=== PATIENT | male | born 1935 | race Caucasian/White ===

== ENCOUNTER 2018-01-23 14:21 | Emergency (ER) | payer MEDICARE, OTHER ==
[2018-01-23 15:05] LABS: #Eosinphils 0.4 thou/uL (0.0-0.7); #Lymphocytes 2.6 thou/uL (1.20-3.40); #Monocytes 0.9 thou/uL (0.11-0.59); #Neutrophils 3.8 thou/uL (1.40-6.50); %Basophils 0.2 % (0.0-1.0); %Eosinophils 5.4 % (0.0-10.0); %Lymphocytes 33.6 % (21.0-51.0); %Monocytes 11.6 % (0.0-10.0); %Neutrophils 49.2 % (42.0-75.0); Hemoglobin 15.2 g/dL (14.0-18.0); Mean Corpuscular HGB CONC 34.4 g/dL (32.0-36.0); Mean Corpuscular Hemoglobin 32.5 pg (27.0-31.0); Mean Corpuscular Volume 94.6 fl (80.0-94.0); Mean Platelet Volume 9.9 fL (7.4-10.4); Platelet Count 179 thou/uL (130-400); Red Blood Cell (RBC) Count 4.67 mill/uL (4.70-6.10); White Blood Cell (WBC) Count 7.7 thou/uL (4.8-10.8)
[2018-01-23] MEDS ORDERED: Ondansetron ODT 4 MG TAB ONE (15:07)
[2018-01-23] MEDS ORDERED: Nitroglycerin 0.4 MG TAB (25 Tab Bottle) ONE (15:37)
--- NOTE | 2018-01-23 15:39 | RAD ---
PORTABLE CHEST: Date: 01-23-18 Provided Clinical History: Choking. FINDINGS: Comparison 07-05-07. Cardiac and mediastinal silhouette is within normal limits. Lungs appear clear. No pleural fluid or p neumothorax apparent. IMPRESSION: No evidence for acute cardiopulmonary process. POS: [facility]
[2018-01-23 16:20] LABS: ALT (SGPT) 21 U/L (8-55); AST (SGOT) 21 U/L (5-34); Albumin 4.2 g/dL (3.4-4.8); Alkaline Phosphatase 93 U/L (40-150); Anion Gap 16 mmol/L (10-20); BUN (Urea Nitrogen) 20 mg/dL (8.4-25.7); Bilirubin, Total 0.8 mg/dL (0.2-1.2); Calc. Creatinine Clearance 0 mL/min (70-130); Calcium 9.6 mg/dL (7.8-10.44); Carbon Dioxide 20 mmol/L (23-31); Chloride 105 mmol/L (98-107); Estimated GFR-MDRD 64; Globulin 3.3 g/dL (2.4-3.5); Glucose 117 mg/dL (83-110); Potassium 3.6 mmol/L (3.5-5.1); Protein, Total 7.5 g/dL (5.8-8.1); Sodium 137 mmol/L (136-145)
--- NOTE | 2018-03-12 15:09 | EKG ---
Test Reason : CHEST PAIN Blood Pressure : / mmHG Vent. Rate : 072 BPM Atrial Rate : 072 BPM P-R Int : 180 ms QRS Dur : 096 ms QT Int : 416 ms P-R-T Axes : 010 -18 038 degrees QTc Int : 455 ms Sinus rhythm with Premature atrial complexes Moderate voltage criteria for LVH, may be normal variant Borderline ECG Confirmed by SHAYY BANEGAS ([id number]), rewrite editor CORNELL MOURA ([id number]) on 03/12/2018 3:09:04 PM Referred By: Confirmed By:SHAYY BANEGAS
== END 2018-01-23 17:14 | disposition home or self-care (01) ==
LOC: ERS 14:21
DX: T18.128A Food in esophagus causing other injury, initial encounter (principal); I10 Essential (primary) hypertension; E11.9 Type 2 diabetes mellitus without complications; Z79.899 Other long term (current) drug therapy; Z79.82 Long term (current) use of aspirin; X58.XXXA Exposure to other specified factors, initial encounter
CPT/HCPCS: 71045; 80053; 83880; 85025; 93005; J1610; 36415; 96374; Q0162

== ENCOUNTER 2019-03-02 00:21 | Observation (INO) | payer MEDICARE, OTHER ==
[2019-03-02 00:55] LABS: #Eosinphils 0.5 thou/uL (0.0-0.7); #Lymphocytes 1.8 thou/uL (1.20-3.40); #Monocytes 0.8 thou/uL (0.11-0.59); %Basophils 0.5 % (0.0-1.0); %Eosinophils 8.1 % (0.0-10.0); %Lymphocytes 29.2 % (21.0-51.0); %Monocytes 12.9 % (0.0-10.0); %Neutrophils 49.3 % (42.0-75.0); Hemoglobin 14.4 g/dL (14.0-18.0); Mean Corpuscular HGB CONC 33.4 g/dL (32.0-36.0); Mean Corpuscular Hemoglobin 31.8 pg (27.0-31.0); Mean Corpuscular Volume 95.3 fL (78.0-98.0); Mean Platelet Volume 9.8 fL (7.4-10.4); Platelet Count 184 thou/uL (130-400); Red Blood Cell (RBC) Count 4.52 mill/uL (4.70-6.10); White Blood Cell (WBC) Count 6.2 thou/uL (4.8-10.8)
[2019-03-02 01:14] LABS: ALT (SGPT) 18 U/L (8-55); AST (SGOT) 16 U/L (5-34); Alkaline Phosphatase 99 U/L (40-150); Anion Gap 12 mmol/L (10-20); BUN (Urea Nitrogen) 22 mg/dL (8.4-25.7); Bilirubin, Total 0.4 mg/dL (0.2-1.2); Calc. Creatinine Clearance 0 mL/min (70-130); Calcium 9.3 mg/dL (7.8-10.44); Carbon Dioxide 24 mmol/L (23-31); Chloride 106 mmol/L (98-107); Estimated GFR-MDRD 61; Globulin 2.3 g/dL (2.4-3.5); Glucose 101 mg/dL (83-110); Potassium 3.7 mmol/L (3.5-5.1); Protein, Total 6.3 g/dL (5.8-8.1); Sodium 138 mmol/L (136-145)
[2019-03-02] MEDS ORDERED: Nitroglycerin 0.4 MG TAB 1 EACH ONE (01:45)
[2019-03-02] MEDS ORDERED: Aspirin Chewable 81 MG TAB ONE (01:45)
[2019-03-02 04:15] LABS: Troponin I 0.013 ng/mL (< 0.028)
[2019-03-02 05:25] VITALS: BMI 34.0
[2019-03-02 07:29] LABS: Troponin I 0.015 ng/mL (< 0.028)
[2019-03-02 08:49] LABS: Cardiac Risk 3.7 (Less than 4.5)
--- NOTE | 2019-03-02 08:53 | RAD ---
RADIOGRAPH CHEST 1 VIEW: HISTORY: An 83-year-old male with chest pain. FINDINGS: The thoracic aorta is tortuous and ectatic. There is no evidence of air space density, pneumothorax, or pulmonary edema. The lateral costophrenic angles are sharp. IMPRESSION: 1) No acute pulmonary findings. 2) Ectasia of thoracic aorta. jn [] POS: [facility]
[2019-03-02] MEDS ORDERED: hydrALAZINE 25 MG TAB PO SCH (09:00)
[2019-03-02] MEDS ORDERED: Aspirin 81 mg Enteric Coated Tablet PO SCH (09:00)
--- NOTE | 2019-03-02 16:39 | NM ---
Radionucleotide stress and rest myocardial perfusion scan with CT attenuation correction and SPECT im aging Left ventricular wall motion evaluation and ejection fraction HISTORY: Chest pain. FINDINGS: Adenosine protocol. There is homogeneous uptake of radiotracer throughout the left ventricu lar myocardium. No focal perfusion defect or reversibility. QGS analysis of gated SPECT images shows no focal wall motion abnormalities. Left ventricular ejectio n fraction calculated at 71%. IMPRESSION: Normal myocardial perfusion scan. Normal LVEF.
[2019-03-02 17:01] VITALS: BP 131/62; TEMP 97.5
[2019-03-02] MEDS ORDERED: Atorvastatin Calcium 20 MG TAB PO SCH (21:00)
[2019-03-02] MEDS ORDERED: Losartan 25 MG TAB PO SCH (21:00)
--- NOTE | 2019-03-03 05:30 | SS ---
DATE OF ADMISSION: 03/02/2019 DATE OF DISCHARGE: 03/02/2019 CHIEF COMPLAINT ON ADMISSION: Chest pain. FINAL DIAGNOSES AT DISCHARGE; 1. Chest pain, atypical and likely musculoskeletal, resolved, acute coronary syndrome ruled out, nuclear stress test negative for reversible ischemia. 2. Abnormal EKG with sinus bradycardia and sinus arrhythmia, asymptomatic. 3. Type 2 diabetes mellitus, controlled. 4. Hypertension. 5. Hyperlipidemia. HOSPITAL COURSE: The patient is a very pleasant, 83-year-old male who presented to the hospital with complaints of chest pain. The patient is active for his age, and was outside working on his tractor, when he came inside and later that night, he began experiencing chest pain that seemed to radiate up into the left arm. The chest pain was nonexertional, and he also described it as shooting. Because it was keeping him awake at night, he decided to present to the ER for further workup and treatment. On arrival, his EKG showed sinus bradycardia with sinus arrhythmia and occasional PVCs. Given his risk factors, he was admitted for ACS rule out. His serial troponin was negative. He underwent a nuclear stress test which was negative for reversible ischemia and showed normal EF. The patient has had no further chest pain or chest discomfort. He has ambulated without issue. The patient feels well. Prior cardiac history has included a stress test many years ago. He has seen Dr. Davis in the past. He has not had any recent cardiac workup until today, but has not had any hospitalizations or limiting cardiac symptoms in the past. He denies any dizziness or presyncope. REVIEW OF SYSTEMS: A 12-point review of systems performed and is negative except that stated above. SOCIAL HISTORY: The patient is a nonsmoker and nondrinker. He does not use illicit drugs. 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 PHYSICAL EXAMINATION: VITAL SIGNS: Blood pressure 131/62, pulse is 85, O2 saturation 95% on room air, respirations 18. GENERAL: The patient is a well-appearing, moderately obese male, in no acute distress. HEENT: Head is atraumatic and normocephalic. Mucous membranes are moist. NECK: Supple. No lymphadenopathy. No carotid bruits. Trachea is midline. CV: S1 and S2. Mildly bradycardic. Regular rhythm. No ectopy noted. LUNGS: Regular respiratory rate and pattern. Clear to auscultation bilaterally. ABDOMEN: Obese, positive bowel sounds. Nontender. EXTREMITIES: Trace edema bilaterally. +2 DP pulses bilaterally. Lower extremities are warm and well perfused. NEUROLOGIC: Cranial nerves II through XII are intact. The patient is nonfocal. LABORATORY DATA: White blood cell count 6.2, hemoglobin 14.4, hematocrit 43.1, platelets are 184. Sodium 138, potassium 3.7, chloride 106, anion gap 12, BUN 22, creatinine 1.15. AST, ALT, and alkaline phosphatase are all within normal limits. Troponin negative at 0.013 and 0.015. Triglycerides 114, cholesterol 128, LDL 70, HDL 35. HOME MEDICATIONS: Which will not be changed at discharge include; 1. Aspirin 81 mg daily. 2. Diltiazem 360 mg one time daily. 3. Finasteride 5 mg orally once daily. 4. Hydralazine 100 mg orally b.i.d. 5. Losartan 50 mg orally once daily. 6. Lipitor 10 mg at bedtime. 7. Pioglitazone 15 mg tablet, one tablet daily. DISCHARGE DISPOSITION: Home. DISCHARGE CONDITION: Stable. FOLLOWUP AND DISCHARGE INSTRUCTIONS: The patient will continue aspirin and statin as well as aggressive risk factor modification. He will continue diabetic and heart healthy diet. He will follow up with his primary smoke control supervisor, Dr. Davis as well as his primary care physician. All questions have been answered and the patient will be discharged in good condition today. The patient was discussed with Dr. Antony who agrees with the above. Job ID: [id number] MTDD
--- NOTE | 2019-03-04 17:01 | EKG ---
Test Reason : Blood Pressure : / mmHG Vent. Rate : 056 BPM Atrial Rate : 056 BPM P-R Int : 204 ms QRS Dur : 096 ms QT Int : 442 ms P-R-T Axes : 006 -14 077 degrees QTc Int : 426 ms Sinus bradycardia with marked sinus arrhythmia with occasional Premature ventricular complexes Minimal voltage criteria for LVH, may be normal variant Borderline ECG Confirmed by NGHIA YIP DO ([id number]), online content editor ROXIE MAGALLANES ([id number]) on 03/04/2019 5:01:02 PM Referred By: Confirmed By:NGHIA YIP DO
== END 2019-03-02 17:45 | disposition home or self-care (01) ==
LOC: ERS 00:21 → 2SE 01:40
PROVIDERS: ADMIT Hospitalist; ATTEND Hospitalist
DX: R07.89 Other chest pain (principal); R94.31 Abnormal electrocardiogram [ECG] [EKG]; E11.9 Type 2 diabetes mellitus without complications; I10 Essential (primary) hypertension; E78.5 Hyperlipidemia, unspecified; E66.9 Obesity, unspecified; Z68.34 Body mass index [BMI] 34.0-34.9, adult; Z79.82 Long term (current) use of aspirin; Z79.84 Long term (current) use of oral hypoglycemic drugs; Z79.899 Other long term (current) drug therapy
CPT/HCPCS: 71045; 78452; 80053; 80061; 84484 ×2; 85025; 93005; 93017; 99285; A9500; G0378 ×2; 36415; J0153